=== PATIENT | female | born 1985 | race Caucasian/White ===

== ENCOUNTER 2020-03-30 14:38 | Emergency (ER) | payer BC, OTHER ==
[~2020-03-30] VITALS: Ht 177.8 cm; Wt 127.7 kg
[2020-03-30 15:42] LABS: BASOPHILS # (AUTO) 0.1 10^3/uL (0.0-0.1); BASOPHILS % (AUTO) 1 % (0-10); EOSINOPHILS % (AUTO) 0 % (0-10); HEMATOCRIT 42 % (35-52); HEMOGLOBIN 13.8 g/dL (11.5-16.0); LYMPHOCYTES # (AUTO) 1.4 10^3/uL (1.0-4.0); LYMPHOCYTES % (AUTO) 18 % (12-44); MEAN CORPUSCULAR HEMOGLOBIN 29 pg (25-34); MEAN CORPUSCULAR HGB CONC 33 g/dL (32-36); MEAN CORPUSCULAR VOLUME 87 fL (80-99); MEAN PLATELET VOLUME 8.5 fL (9.0-12.2); MONOCYTES # (AUTO) 0.4 10^3/uL (0.0-1.0); MONOCYTES % (AUTO) 6 % (0-12); NEUTROPHILS # (AUTO) 5.7 10^3/uL (1.8-7.8); NEUTROPHILS % (AUTO) 75 % (42-75); PLATELET COUNT 225 10^3/uL (130-400); WHITE BLOOD COUNT 7.5 10^3/uL (4.3-11.0)
--- NOTE | 2020-03-30 15:44 | ED Chest Pain ---
General Chief Complaint: Chest Wall Stated Complaint: CHEST / SHOULDER BLADE PAIN Nursing Triage Note: AMB TO ROOM WITH C/O PAIN IN L SCAPULA WITH RADIATION TO FRONT DENIES SOA.STATED THAT BENT OVER LAST NIGHT AND HAD PAIN IN SCAPULA AREA. ONSET APX 0730 TODAY TOOK 2 IBUPROFEN THAT DID NOT HELP. Nursing Sepsis Screen: No Definite Risk History of Present Illness Date Seen by Provider: Mar 30, 2020 Time Seen by Provider: 15:43 Initial Comments This is a healthy-appearing 34 yo female with a history of hypertension who presents to the ER with complaints of intermittent localized sternal chest pain. Describes as "pain", currently rates 0 out of 10 at this time. Denies any alleviating or aggravating factors. Notes that she was lifting a heavy box yesterday and pulled a muscle in her left shoulder. States she is unsure if this is the cause of her pain, however, would like further evaluation to ensure no cardiac origin. Denies syncope, vertigo, cough, fevers, chills, chest pain, diaphoresis nausea, vomiting, diarrhea. Allergies and Home Medications Allergies Coded Allergies: No Known Drug Allergies (Verified Allergy, Unknown, 11/22/08) Patient Home Medication List Home Medication List Reviewed: Yes Review of Systems Review of Systems Constitutional: no symptoms reported EENTM: No Symptoms Reported Respiratory: No Symptoms Reported Cardiovascular: No Symptoms Reported Gastrointestinal: No Symptoms Reported Genitourinary: No Symptoms Reported Musculoskeletal: see HPI Skin: no symptoms reported Psychiatric/Neurological: No Symptoms Reported Endocrine: No Symptoms Reported Hematologic/Lymphatic: No Symptoms Reported Past Blzxwlg-Ibutvq-Csetyn Hx Patient Social History Alcohol Use: Occasionally Uses Recreational Drug Use: No Recent Foreign Travel: No Contact w/Someone Who Travel: No Recent Infectious Disease Expo: No Recent Hopitalizations: No Past Medical History Surgeries: Yes (wisdom teeth) Respiratory: No Cardiac: No Neurological: No Reproductive Disorders: No Gastrointestinal: No Musculoskeletal: No Endocrine: No Psychosocial: Yes Blood Disorders: No Physical Exam Vital Signs Vital Signs - First Documented 03/30/20 03/30/20 14:58 17:11 Temp 37.0 Pulse 82 Resp 18 B/P (MAP) 125/88 (100) Pulse Ox 98 O2 Delivery Room Air Capillary Refill : Less Than 3 Seconds Height, Weight, BMI Height: '" Weight: lbs. oz. kg; 40.00 BMI Method: General Appearance: No Apparent Distress, WD/WN HEENT: PERRL/EOMI, Normal ENT Inspection Neck: Full Range of Motion, Non Tender Respiratory: Lungs Clear, Normal Breath Sounds Cardiovascular: Regular Rate, Rhythm, Normal Peripheral Pulses Gastrointestinal: Normal Bowel Sounds, Non Tender, Soft Extremity: Normal Capillary Refill, Normal Inspection, Normal Range of Motion, No Calf Tenderness Neurologic/Psychiatric: Alert, Oriented x3, No Motor/Sensory Deficits, Normal Mood/Affect Skin: Normal Color, Warm/Dry Progress/Results/Core Measures Results/Orders Lab Results Laboratory Tests Test 03/30/20 15:35 Range/Units White Blood Count 7.5 4.3-11.0 10^3/uL Red Blood Count 4.80 3.80-5.11 10^6/uL Hemoglobin 13.8 11.5-16.0 g/dL Hematocrit 42 35-52 % Mean Corpuscular Volume 87 80-99 fL Mean Corpuscular Hemoglobin 29 25-34 pg Mean Corpuscular Hemoglobin Concent 33 32-36 g/dL Red Cell Distribution Width 13.2 10.0-14.5 % Platelet Count 225 130-400 10^3/uL Mean Platelet Volume 8.5 L 9.0-12.2 fL Immature Granulocyte % (Auto) 0 % Neutrophils (%) (Auto) 75 42-75 % Lymphocytes (%) (Auto) 18 12-44 % Monocytes (%) (Auto) 6 0-12 % Eosinophils (%) (Auto) 0 0-10 % Basophils (%) (Auto) 1 0-10 % Neutrophils # (Auto) 5.7 1.8-7.8 10^3/uL Lymphocytes # (Auto) 1.4 1.0-4.0 10^3/uL Monocytes # (Auto) 0.4 0.0-1.0 10^3/uL Eosinophils # (Auto) 0.0 0.0-0.3 10^3/uL Basophils # (Auto) 0.1 0.0-0.1 10^3/uL Immature Granulocyte # (Auto) 0.0 0.0-0.1 10^3/uL Prothrombin Time 13.7 12.2-14.7 SEC INR Comment 1.0 0.8-1.4 Activated Partial Thromboplast Time 26 24-35 SEC D-Dimer 0.36 0.00-0.49 UG/ML Sodium Level 136 135-145 MMOL/L Potassium Level 4.0 3.6-5.0 MMOL/L Chloride Level 102 98-107 MMOL/L Carbon Dioxide Level 22 21-32 MMOL/L Anion Gap 12 5-14 MMOL/L Blood Urea Nitrogen 18 7-18 MG/DL Creatinine 1.04 0.60-1.30 MG/DL Estimat Glomerular Filtration Rate 60 BUN/Creatinine Ratio 17 Glucose Level 94 70-105 MG/DL Calcium Level 9.2 8.5-10.1 MG/DL Corrected Calcium 8.9 8.5-10.1 MG/DL Total Bilirubin 0.7 0.1-1.0 MG/DL Aspartate Amino Transf (AST/SGOT) 19 5-34 U/L Alanine Aminotransferase (ALT/SGPT) 21 0-55 U/L Alkaline Phosphatase 43 40-136 U/L Troponin I < 0.028 <0.028 NG/ML Total Protein 7.5 6.4-8.2 GM/DL Albumin 4.4 3.2-4.5 GM/DL My Orders Orders - NOLBERTO FUNEZ [employer] Cbc With Automated Diff (03/30/20 15:09) Chest 1 View, Ap/Pa Only (03/30/20 15:09) Ekg Tracing (03/30/20 15:09) Comprehensive Metabolic Panel (03/30/20 15:09) Protime With Inr (03/30/20 15:09) Partial Thromboplastin Time (03/30/20 15:09) Ed Iv/Invasive Line Start (03/30/20 15:09) Troponin I (03/30/20 15:09) Urine Bedside (03/30/20 15:09) Fibrin Degradation Products (03/30/20 15:29) Vital Signs/I&O 03/30/20 03/30/20 14:58 17:11 Temp 37.0 Pulse 82 67 Resp 18 18 B/P (MAP) 125/88 (100) 164/100 Pulse Ox 98 O2 Delivery Room Air Blood Pressure Mean: 100 Progress Progress Note : Progress Note Initiated cardiac workup upon arrival. EKG obtained and noted to be sinus rhythm with a rate of 86. Labs reviewed and are unremarkable. Chest x-ray reviewed and is unremarkable. Discussed that part of her symptoms could be anxiety,which she agrees with. Pain could be muscle skeletal nature from her lifting heavy boxes and working out. Discussed following up with her primary care provider for further evaluation with cardiac holter monitor if symptoms persist. Reviewed discharge plan of care with her and she is agreeable with plan. Initial ECG Impression Date: Mar 30, 2020 Initial ECG Impression Time: 14:55 Initial ECG Rate: 86 Initial ECG Rhythm: Normal Sinus Initial ECG Impression: Nonspecific Changes Diagnostic Imaging Diagonstic Imaging: Xray Plain Films/CT/US/NM/MRI: chest Comments NAME: JOHN ELLIS [facility] REC#: [id number] PT STATUS: REG ER : 1985 PHYSICIAN: NOLBERTO FUNEZ [employer] ADMIT DATE: 03/30/20/ER Signed Date of Exam:03/30/20 CHEST 1 VIEW, AP/PA ONLY EXAMINATION: Chest 1 view. HISTORY: Chest pain. Left shoulder pain. COMPARISON: None available. FINDINGS: The lung volumes are normal. No focal consolidation is seen. No large pleural effusion or pneumothorax is seen. The cardiomediastinal silhouette is normal in size and contour. No acute osseous abnormality is seen. IMPRESSION: No acute pleuroparenchymal process. Dictated by: Dictated on workstation # [id number] Dict: 03/30/20 1546 Trans: 03/30/20 1600 [facility] [id number] Interpreted by: EMILE ESCAMILLA DO Electronically signed by: EMILE ESCAMILLA DO 03/30/20 1600 Departure Impression Primary Impression: Chest wall pain Disposition: 01 HOME, SELF-CARE Condition: Stable/Unchanged Departure-Patient Inst. Decision time for Depature: 16:39 Referrals: KELSIE MICHEL DO (PCP/Family) Primary Care Physician Patient Instructions: Chest Pain That Is Not Caused by the Heart (DC) Add. Discharge Instructions: Plan: 1. Discharge home. 2. Follow-up with Dr. Michel on Wednesday, may discuss use of cardiac recorder if palpitations continue to occur. 3. Return to ER for any new, concerning, or worsening symptoms. All discharge instructions reviewed with patient and/or family. Voiced understanding. NOLBERTO FUNEZ APRN Mar 30, 2020 15:44
--- NOTE | 2020-03-30 15:48 | Diagnostic Imaging Report ---
EXAMINATION: Chest 1 view. HISTORY: Chest pain. Left shoulder pain. COMPARISON: None available. FINDINGS: The lung volumes are normal. No focal consolidation is seen. No large pleural effusion or pneumothorax is seen. The cardiomediastinal silhouette is normal in size and contour. No acute osseous abnormality is seen. IMPRESSION: No acute pleuroparenchymal process. Dictated by: Dictated on workstation # [id number]
[2020-03-30 15:51] LABS: PROTHROMBIN TIME PATIENT 13.7 SEC (12.2-14.7)
[2020-03-30 15:58] LABS: ALBUMIN 4.4 GM/DL (3.2-4.5)
[2020-03-30 15:59] LABS: CALCIUM 9.2 MG/DL (8.5-10.1)
[2020-03-30 16:01] LABS: TOTAL PROTEIN 7.5 GM/DL (6.4-8.2)
[2020-03-30 16:02] LABS: BILIRUBIN,TOTAL 0.7 MG/DL (0.1-1.0)
[2020-03-30 16:04] LABS: CREATININE SERUM 1.04 MG/DL (0.60-1.30)
[2020-03-30 17:11] VITALS: BP 164/100
== END 2020-03-30 16:49 | disposition home or self-care (01) ==
LOC: EDUNIT# 14:38 → ER 14:40
DX: R07.89 Other chest pain (principal)
CPT/HCPCS: 36415; 71045; 80053; 84484; 85025; 85379; 85610; 85730; 93005